=== PATIENT | female | born 1990 | race Two or more races ===

== ENCOUNTER 2016-10-06 12:31 | Emergency (ER) | payer MEDICAID ==
[~2016-10-06] VITALS: Ht 160 cm; Wt 72.6 kg
[2016-10-06] MEDS ORDERED: ALBUTEROL FS 2.5 MG/3 ML VIAL.NEB NEB ONE (13:00)
[2016-10-06] MEDS ORDERED: predniSONE 20 MG TABLET PO ONE (13:00)
[2016-10-06] MEDS ORDERED: predniSONE 20 MG TABLET ONE (13:03)
[2016-10-06] MEDS ORDERED: ALBUTEROL FS 2.5 MG/3 ML VIAL.NEB ONE (13:05)
[2016-10-06] MEDS ORDERED: IPRATROPIUM NEB FS 0.5 MG/2.5 ML AMPUL.NEB ONE (13:05)
[2016-10-06 13:16] VITALS: BP 124/77
== END 2016-10-06 13:55 | disposition left against medical advice (07) ==
LOC: ER 12:34
DX: J40 Bronchitis, not specified as acute or chronic (principal); F17.200 Nicotine dependence, unspecified, uncomplicated
CPT/HCPCS: A4606; Z7610

== ENCOUNTER 2016-10-07 07:05 | Emergency (ER) | payer MEDICAID ==
[~2016-10-07] VITALS: Ht 160 cm; Wt 74.8 kg
[2016-10-07] MEDS ORDERED: ALBUTEROL FS 2.5 MG/3 ML VIAL.NEB CONTNEB ONE (07:30)
[2016-10-07] MEDS ORDERED: ALBUTEROL FS 2.5 MG/3 ML VIAL.NEB ONE (07:35)
--- NOTE | 2016-10-07 07:45 | NUR ---
PT REC'D TO ER C/O SOUGHNING AND SOB PT IS A SMOKER WAS SEEN HERE ON SUNDAY BUT LEFT TO [facility] AIDE CHILD BACK TODAY CHEST XRAY DONE AND RT AT BEDSIDE GIVIG BREATHING TX
--- NOTE | 2016-10-07 08:18 | NUR ---
PT. VERBALIZED UNDERSTANDING OF AFTERCARE INSTRUCTIONS.Patient discharged to home in stable condition. Written and verbal after care instructions given. Patient verbalizes understanding of instruction.
[2016-10-07 08:19] VITALS: BP 122/74
== END 2016-10-07 08:19 | disposition home or self-care (01) ==
LOC: ER 07:08
DX: R05 Cough (principal); G93.3 Postviral and related fatigue syndromes; F17.200 Nicotine dependence, unspecified, uncomplicated
CPT/HCPCS: 71010-TC; A4606; Z7610

== ENCOUNTER 2016-12-24 22:35 | Emergency (ER) | payer SELFPAY ==
[~2016-12-24] VITALS: Ht 167.6 cm; Wt 73.5 kg
--- NOTE | 2016-12-24 23:10 | NUR ---
[facility] AR[facility]IVED WITH [facility]. PT IS NOT ON A HOLD. PT DENIED SI TO [facility].
--- NOTE | 2016-12-24 23:10 | NUR ---
PT BIB [facility] WITH A C/O BEING UPSET, PT DENIES SI, PT IS CRYING AND STATED: "I JUST WANTED TO LEAVE THE STATE".
[2016-12-24 23:16] LABS: BASOPHILS # (AUTO) 0.1 /CMM (0.0-0.2); EOSINOPHILS # (AUTO) 0.1 /CMM (0.0-0.7); EOSINOPHILS % (AUTO) 1.5 % (0.0-6.0); HEMATOCRIT 37 % (33-45); HEMOGLOBIN 12.4 g/dL (11.5-14.8); LYMPHOCYTES # (AUTO) 2.1 /CMM (0.8-4.8); LYMPHOCYTES % (AUTO) 24.2 % (20.0-44.0); MEAN CORPUSCULAR HEMOGLOBIN 27 PG (26.0-33.0); MEAN CORPUSCULAR HGB CONC 33 g/dl (31.0-36.0); MEAN CORPUSCULAR VOLUME 81 fL (82-100); MONOCYTES # (AUTO) 0.7 /CMM (0.1-1.30); MONOCYTES % (AUTO) 7.8 % (2.0-12.0); NEUTROPHILS # (AUTO) 5.6 /CMM (1.8-8.9); NEUTROPHILS % (AUTO) 65.5 % (43.0-81.0); PLATELET COUNT (AUTO) 302 /CMM (150-450); RDW COEFFICIENT OF VARIATION 13.4 (11.5-15.0); RED BLOOD CELL COUNT(AUTO) 4.58 MIL/uL (4.0-5.2); WHITE BLOOD COUNT (AUTO) 8.5 K/uL (4.3-11.0)
[2016-12-24 23:31] LABS: CALCIUM, SERUM 9.1 mg/dL (8.5-10.1); CARBON DIOXIDE 30 mmol/L (21-32); CHLORIDE 104 mmol/L (98-107); GLUCOSE 88 mg/dL (74-106); POTASSIUM 4.1 mmol/L (3.5-5.1); SODIUM SERUM 141 mmol/L (136-145); UREA NITROGEN, BLOOD 10 mg/dL (7-18)
--- NOTE | 2016-12-24 23:31 | NUR ---
ERICK [facility] [employer] LEFT.
[2016-12-24 23:37] LABS: ALANINE AMINOTRANSFERASE 14 U/L (12-78); ALBUMIN 4.2 g/dL (3.4-5.0); ALCOHOL, BLOOD < 3 mg/dL (0-0); ALKALINE PHOSPHATASE 58 U/L (46-116); ASPARTATE AMINOTRANSFERASE 10 U/L (15-37); BILIRUBIN,DIRECT 0.2 mg/dL (0.0-0.2); BILIRUBIN,TOTAL 0.9 mg/dL (0.2-1.0); TOTAL PROTEIN, SERUM 7.4 g/dL (6.4-8.2)
[2016-12-24 23:38] LABS: ACETAMINOPHEN 0 ug/ml (10-30); SALICYLATE < 0.2 mg/dL (2.8-20.0)
--- NOTE | 2016-12-25 00:28 | NUR ---
PT APPEARS TO BE SLEEPING COMFORTABLY. PT HAS WARM BLANKETS. WILL CONTINUE TO MONITOR THE PT.
--- NOTE | 2016-12-25 00:30 | NUR ---
PT'S FRIEND IS AT THE BEDSIDE.
--- NOTE | 2016-12-25 01:39 | NUR ---
PT APPEARS TO BE RESTING COMFORTABLY WITH NO S/S OF PAIN OR DISTRESS. PT'S FRIEND WAS AT THE BEDSIDE AND JUST LEFT.
[2016-12-25] MEDS ORDERED: FLUCONAZOLE (100 MG) 100 MG TABLET ONE (02:15)
--- NOTE | 2016-12-25 02:27 | NUR ---
Patient discharged to home in stable condition. Written and verbal after care instructions given. Patient verbalizes understanding of instruction. PT AMBULATED OUT WITH A STEADY GAIT. VSS.
[2016-12-25] MEDS ORDERED: FLUCONAZOLE (100 MG) 100 MG TABLET PO ONE (02:30)
[2016-12-25 02:45] VITALS: BP 112/75
== END 2016-12-25 02:33 | disposition home or self-care (01) ==
LOC: ER 22:36
DX: F41.0 Panic disorder [episodic paroxysmal anxiety] (principal); B37.3 Candidiasis of vulva and vagina
CPT/HCPCS: 36415; 80048; 80076; 80329; 85025; 93005; 99284; A4606; G0480 ×2; Z7610